=== PATIENT | female | born 1980 | race Caucasian/White ===

== ENCOUNTER 2017-12-29 09:24 | Inpatient (IN) | payer OTHER ==
[2017-12-29] MEDS ORDERED: PEPCID IV SCH (09:50)
[2017-12-29] MEDS ORDERED: REGLAN IV SCH (09:50)
[2017-12-29] MEDS ORDERED: BICITRA PO SCH (09:50)
[2017-12-29] MEDS ORDERED: PITOCin/NS 20 UNIT/1000ML DRIP 20 UNITS/1,000 ML BAG IV SCH ×2 (10:00→15:00)
[2017-12-29] MEDS ORDERED: GARAMYCIN/NS 120MG/100ML 120 MG/100 ML BAG IV SCH (10:00)
[2017-12-29] MEDS ORDERED: LACTATED RINGERS 1,000 ML IV SCH (10:00)
[2017-12-29] MEDS ORDERED: CLEOCIN 600 MG/50 mL 600 MG/50 ML BAG IV NR (10:00)
[2017-12-29] MEDS ORDERED: ANCEF/STERILE WATER 2 GM/20 ML 2 GM/20 ML SYRINGE IV NR (10:00)
[2017-12-29] MEDS: LACTATED RINGERS 1,000 ML IV SCH ×2 (10:30→19:51)
[2017-12-29] MEDS ORDERED: REGLAN ONE (10:36)
[2017-12-29] MEDS ORDERED: CLEOCIN 900 MG/50 mL 900 MG/50 ML BAG IV ONE (10:40)
--- NOTE | 2017-12-29 10:42 | History and Physical Report ---
History of Present Illness Date of examination: 12/29/17 Date of admission: 12/29/17 09:24 Chief complaint: 39 weeks gestation not in labor for elective repeat C/section. History of present illness: Patient is a 37 year old , LMP 03/21/17, EDC 01/03/18 at 39 weeks and 2 days who is admitted for elective repeat C/section. She denies any contractions , fluid leakage or bleeding. She reports good movement. Past History Past Medical History: other (anemia, Hep A) Past Surgical History: section Family/Genetic History: none Social history: no significant social history - Obstetrical History Expected Date of Delivery: 01/03/18 Actual Gestation: 39 Week(s) 2 Day(s) : 2 Para: 1 Hx # Term Pregnancies: 1 Number of Living Children: 1 #1 Infant Gender: Male year: Birthweight: 3.6 kg Method of Delivery: Gestational age at delivery: 40 Complications: transfusion, uterine atony Medications and Allergies Allergies Allergy/AdvReac Type Severity Reaction Status Date / Time Penicillins Allergy Rash Unverified 12/29/17 09:27 Sulfa (Sulfonamide Allergy Hives Unverified 12/29/17 09:27 Antibiotics) Active Meds: Active Medications Citric Acid/Sodium Citrate (Bicitra) 30 ml PO ONCE GINA Stop: 12/29/17 23:00 Famotidine (Pepcid) 20 mg IV ONCE ONE Stop: 12/29/17 09:51 Clindamycin HCl (Cleocin 600 Mg/50 Ml) 600 mg in 50 mls @ 100 mls/hr IV PREOP NR; Protocol Stop: 12/29/17 23:00 Gentamicin Sulfate/Sodium Chloride (Garamycin/Ns 120mg/100ml) 120 mg in 100 mls @ 194.175 mls/hr IV PREOP GINA; Protocol Stop: 12/29/17 23:00 Oxytocin/Sodium Chloride (Pitocin/Ns 20 Unit/1000ml Drip) 20 units in 1,000 mls @ 0 mls/hr IV TITR GINA Lactated Ringer's (Lactated Ringers) 1,000 mls @ 2,250 mls/hr IV PREOP GINA Stop: 12/30/17 10:27 Cefazolin Sodium (Ancef/Sterile Water 2 Gm/20 Ml) 2 gm in 20 mls @ 80 mls/hr IV PREOP NR; Protocol Stop: 12/29/17 23:00 Metoclopramide HCl (Reglan) 10 mg IV ONCE ONE Stop: 12/29/17 09:51 - Physical Exam Cardiovascular: Normal S1, Normal S2 Lungs: Positive: Clear to auscultation Vulva: both: normal Adnexa: both: normal Deep Tendon Reflex Grade: Normal +2 - Obstetrical FHR: category 1 Uterine Contraction Monitor Mode: External Cervical Dilatation: 0 Cervical Effacement Percentage: 50 station: -3 Uterine Contraction Pattern: Absent Results All other labs normal. Assessment and Plan - Patient Problems (1) 39 weeks gestation of Current Visit: Yes Status: Acute (2) Previous section Current Visit: Yes Status: Acute Plan to address problem: Admit to labor floor. Routine admitting labs. IV fluid. monitoring. Patient is for repeat C/section. Risks and benefits of the procedure were discussed in detail with the patient which included but not limited to the risks of infection, hemorrhage requiring blood transfusion, injury to the bowel , bladder and blood vessels. The patient expressed understanding, her questions were answered, she gave her informed consent. Anesthesia notified. Keep NPO. (3) Declines (vaginal after ) trial Current Visit: Yes Status: Acute
[2017-12-29 11:00] LABS: Basophils % (Auto) 0.4 % (0.0-1.8); Eosinophils # (Auto) 0.1 K/mm3 (0.0-0.4); Eosinophils % (Auto) 0.8 % (0.0-4.3); Hematocrit 39.3 % (30.3-42.9); Hemoglobin 13.1 gm/dl (10.1-14.3); Lymphocytes # (Auto) 2.2 K/mm3 (1.2-5.4); Lymphocytes % (Auto) 19.7 % (13.4-35.0); Mean Corpuscular HGB Conc 33 % (30-34); Mean Corpuscular Hemoglobin 31 pg (28-32); Mean Corpuscular Volume 91 fl (79-97); Monocytes # (Auto) 0.8 K/mm3 (0.0-0.8); Monocytes % (Auto) 6.9 % (0.0-7.3); Platelet Count 210 K/mm3 (140-440); Red Cell Distribution Width 13.4 % (13.2-15.2)
--- NOTE | 2017-12-29 11:14 | Anesthesia Consultation ---
Anesthesia Consult and Med Hx Date of service: 12/29/17 - Airway Anesthetic Teeth Evaluation: Good ROM Head & Neck: Adequate Mental/Hyoid Distance: Adequate - Pre-Operative Health Status ASA Pre-Surgery Classification: ASA2 Proposed Anesthetic Plan: General
[2017-12-29] MEDS ORDERED: MORPHINE ONE (11:27)
[2017-12-29] MEDS ORDERED: WATER FOR IRRIG STERILE IR ONE (12:17)
[2017-12-29] MEDS ORDERED: NACL 0.9% IR ONE (12:17)
[2017-12-29] MEDS ORDERED: XYLOCAINE MPF 2% ONE (12:44)
[2017-12-29] MEDS ORDERED: HEMABATE IM ONE ×2 (13:07→13:14)
[2017-12-29] MEDS ORDERED: HEMABATE IM NR (13:15)
[2017-12-29] MEDS ORDERED: LACTATED RINGERS 1,000 ML ONE (13:57)
[2017-12-29] MEDS ORDERED: NARCAN 0.4 MG/1 ML IV PRN (14:04)
[2017-12-29] MEDS ORDERED: TORADOL IV PRN (14:04)
[2017-12-29] MEDS ORDERED: SENOKOT PO PRN (14:04)
[2017-12-29] MEDS ORDERED: LANSINOH TP PRN (14:04)
[2017-12-29] MEDS ORDERED: ZOFRAN IV PRN (14:04)
[2017-12-29] MEDS ORDERED: MYLICON PO PRN (14:04)
[2017-12-29] MEDS ORDERED: TYLENOL PO PRN (14:04)
[2017-12-29] MEDS ORDERED: MILK OF MAGNESIA PO PRN (14:04)
[2017-12-29] MEDS ORDERED: MORPHINE IV PRN (14:04)
[2017-12-29] MEDS ORDERED: TUCKS PAD TP PRN (14:04)
--- NOTE | 2017-12-29 14:10 | Operative Report ---
Operative Report Operative Report: Preoperative diagnosis: 1. SIUP at 39 weeks and 2 days gestation not in labor. 2. Previous C/section. 3. Declined . Postoperative diagnosis: same as preoperative diagnosis. Procedure: Repeat low transverse C/section. Surgeon: Dr. Garcia Press Cutter: none Anesthesia: spinal IVF: RL 1.5 liters EBL: 1 liter Urine: 100 cc clear Complications: intraoperative uterine atony responsive to IV pitocin and myometrial hemabate. Procedure details: Risks, benefits, and alternatives of the procedure were discussed in detail with the patient was included but not limited to risk of infection, hemorrhage requiring blood incision, injury to the bowel or bladder and blood vessels. The patient expressed understanding, questions were answered, and she gave informed consent. The patient was taken to the operating room with an IV fluid and using Ringers lactate. In the operating room, she was placed in a sitting position and given spinal anesthesia. Then, she was placed in a dorsal supine position with a leftward tilt. Mistry catheter and Venodyne boots were placed. The abdomen was washed and she was prepared and draped in the usual sterile fashion. After confirming adequate spinal anesthesia, a Pfannenstiel skin incision was made in the lower abdomen at the level of the previous scar using the scalpel. This incision was carried down to the underlying fascia using the Bovie. The fascia was incised bilaterally in curvilinear fashion using the Bovie. 2 straight Kocker clamps were used to grasp the upper edge of the fascia from which the underlying rectus abdominis muscle was dissected off using the Bovie. A similar procedure was done with the lower edge of the fascia to dissect the underlying rectus abdominis muscle. The muscle was bluntly from the midline by pulling. The parietal peritoneum was grasped with 2 hemostat clamps and entered sharply using Metzenbaum scissors. A quick survey of the anatomy revealed a gravid uterus, normal fallopian tubes and ovaries bilaterally. A bladder flap was created. Marlon'O retractor was placed at the incision for proper visualization. A low transverse incision was made in the lower uterine segment using the scalpel and extended bilaterally in a curvilinear fashion using bandage scissors. The amniotic sac was ruptured and there was copious amount of clear amniotic fluid. The was found in an THA position. The head was delivered atraumatically followed by the delivery of the shoulders and rest of the body at 12:50 PM. The cord was clamped 2 and cut and the infant was handed off to the waiting early education teacher. The infant was a male, Apgars were 8 at 1 minute and 9 at 5 minutes, weight was 7 pounds and 13 ounces. Cord blood was collected. The placenta was delivered manually and it was completely three-vessel cord. The uterine incision was repaired in a running locked fashion using 0 Vicryl sutures. A second layer of imbrication was placed. There was some uterine atony which was responsive to IV Pitocin and myometrial Hemabate. The gutters were cleaned of clots and debris using dry lap sponges. After confirming adequate hemostasis, the instruments were removed from the abdominal cavity. The fascia was closed in a running fashion using 0 Vicryl sutures. The skin was closed in a subcutaneous fashion with 4-0 Vicryl on a Saji needle. Sterile dressing was placed. The counts of laps, needles, sponges and instruments were correct 2. The patient tolerated the procedure well. She was taken to the recovery room in a stable condition.
[2017-12-29] MEDS ORDERED: SODIUM CHLORIDE FLUSH SYRINGE 10 ML IV NR (15:00)
[2017-12-29] MEDS: TORADOL IV PRN ×2 (18:45→23:23)
[2017-12-29] MEDS ORDERED: BENADRYL PO PRN (19:32)
[2017-12-29 19:50] LABS: Hematocrit 32.6 % (30.3-42.9); Hemoglobin 10.5 gm/dl (10.1-14.3); Mean Corpuscular HGB Conc 32 % (30-34); Mean Corpuscular Hemoglobin 29 pg (28-32); Mean Corpuscular Volume 91 fl (79-97); Platelet Count 198 K/mm3 (140-440); Red Blood Count 3.57 M/mm3 (3.65-5.03); Red Cell Distribution Width 13.3 % (13.2-15.2)
[2017-12-30 02:06] LABS: Hematocrit 28.3 % (30.3-42.9); Hemoglobin 9.5 gm/dl (10.1-14.3)
[2017-12-30] MEDS: PERCOCET 5/325 PO PRN ×2 (06:51→12:05)
[2017-12-30] MEDS: MOTRIN PO PRN ×3 (09:18→21:20)
[2017-12-30] MEDS ORDERED: PRENATAL VITAMIN PO SCH (10:00)
[2017-12-30] MEDS ORDERED: FEOSOL PO SCH (10:00)
--- NOTE | 2017-12-30 10:00 | Progress Note ---
Assessment and Plan A: POD#1 s/p Repeat section Pain well controlled Stable P: Routine PP/PO care Encouraged ambulation in room Anticipate discharge home 24-48 hours Subjective - Subjective Date of service: 12/30/17 Principal diagnosis: s/p Repeat section Patient reports: appetite normal, voiding normally, pain well controlled, flatus , ambulating normally, no bowel movement [place]: doing well, bottle feeding Objective - Vital Signs Latest vital signs: Vital Signs Temp Pulse Resp BP BP Pulse Ox 12/30/17 09:18 20 12/30/17 08:42 98.5 F 101 H 16 104/53 12/30/17 04:18 98.5 F 105 H 18 115/70 95 12/29/17 23:55 99.0 F 102 H 16 111/63 96 12/29/17 20:06 99.0 F 107 H 16 122/77 97 12/29/17 15:30 98.3 F 88 131/69 12/29/17 15:06 84 18 111/56 98 12/29/17 15:01 97.9 F 12/29/17 15:00 83 18 111/56 98 12/29/17 14:55 84 22 104/64 98 12/29/17 14:50 80 14 108/61 96 12/29/17 14:45 78 16 103/64 98 12/29/17 14:40 77 15 105/60 97 12/29/17 14:35 78 15 103/59 99 12/29/17 14:30 79 17 103/65 98 12/29/17 14:25 89 20 109/73 99 12/29/17 14:20 82 17 115/63 98 12/29/17 14:15 89 16 104/69 99 12/29/17 14:10 92 H 12 110/71 99 12/29/17 14:05 93 H 10 L 113/54 99 12/29/17 14:04 97.9 F 12/29/17 14:03 99 12/29/17 11:30 132 H 100 Intake and Output 12/29/17 12/30/17 12/30/17 23:59 07:59 15:59 Intake Total 320 Output Total 750 Balance -430 Intake: Oral 320 Output: Urine 750 Indwelling Catheter 200 Void 550 Other: Total, Intake Amount 320 Total, Output Amount 750 # Bowel Movements 0 - Exam Breasts: Present: normal Cardiovascular: Present: Regular rate, Normal S1, Normal S2 Lungs: Present: Clear to auscultation, Normal air movement Abdomen: Present: normal appearance, soft, tenderness (as expected), normal bowel sounds. Absent: distention Vulva: both: normal Uterus: Present: firm, fundal height at umbilicus Extremities: Present: normal Deep Tendon Reflex Grade: Normal +2 Incision: Present: normal, dry, intact, dressed (pressure dressing, CDI, no drainage) - Labs Labs: Abnormal lab results 12/29/17 12/29/17 12/30/17 Range/Units 10:20 18:18 01:18 WBC 11.3 H 14.8 H (4.5-11.0) K/mm3 RBC 3.57 L (3.65-5.03) M/mm3 Hgb 9.5 L (10.1-14.3) gm/dl Hct 28.3 L (30.3-42.9) % Seg Neutrophils % 72.2 H (40.0-70.0) % Seg Neutrophils # 8.2 H (1.8-7.7) K/mm3
[2017-12-31] MEDS: PERCOCET 5/325 PO PRN ×2 (03:25→14:35)
[2017-12-31] MEDS: MOTRIN PO PRN ×2 (06:02→14:35)
--- NOTE | 2017-12-31 10:50 | Progress Note ---
Assessment and Plan A: POD #2 Asymptomatic Anemia P: Follow Routine PostOp Orders Continue FESO4 D/c home today per patient request RTO in One Week Subjective - Subjective Date of service: 12/31/17 Principal diagnosis: s/p Repeat section Patient reports: appetite normal, voiding normally, pain well controlled, flatus , bowel movement, ambulating normally [place]: doing well, bottle feeding (and bottlefeeding) Objective - Vital Signs Latest vital signs: Vital Signs Temp Pulse Resp BP Pulse Ox 12/31/17 03:22 98.0 F 101 H 20 120/75 96 12/30/17 15:00 20 12/30/17 12:05 20 Intake and Output 12/30/17 12/31/17 12/31/17 22:59 06:59 14:59 Intake Total 360 Balance 360 Intake: Intake, Free Water 360 Other: # Voids Void 2 - Exam Breasts: Present: normal Cardiovascular: Present: Regular rate Lungs: Present: Clear to auscultation, Normal air movement Abdomen: Present: normal appearance, soft, normal bowel sounds Uterus: Present: normal, firm, fundal height below umbilicus Extremities: Present: normal Incision: Present: normal, dry, intact
--- NOTE | 2017-12-31 10:52 | Discharge Summary ---
Providers - Providers Date of Admission: 12/29/17 09:24 Date of discharge: 12/31/17 Attending physician: KRISTOPHER CHESTER MD Primary care physician: KRISTOPHER CHESTER MD Hospitalization Reason for admission: section Delivery: Procedure: repeat low transverse Episiotomy: none Laceration: none Incision: normal, dry, intact complications: none Discharge diagnosis: IUP at term delivered [place] baby: male Condition at discharge: Good Disposition: DC-01 TO HOME OR SELFCARE Plan - Discharge Medications Prescriptions: Ibuprofen [Motrin] 800 mg PO Q8HR PRN #20 tablet PRN Reason: Pain, Moderate (4-6) Ibuprofen [Motrin] 800 mg PO Q8HR PRN #20 tablet PRN Reason: Pain, Moderate (4-6) Ibuprofen [Motrin] 800 mg PO Q8HR PRN #20 tablet PRN Reason: Pain, Moderate (4-6) oxyCODONE /ACETAMINOPHEN [Percocet 5/325] 1 tab PO Q4HR #14 tab oxyCODONE /ACETAMINOPHEN [Percocet 5/325] 1 tab PO Q4HR #14 tab oxyCODONE /ACETAMINOPHEN [Percocet 5/325] 1 tab PO Q4HR #14 tab - Provider Discharge Summary Activity: routine, no sex for 6 weeks, no heavy lifting 4 weeks, no strenuous exercise Diet: routine Instructions: routine Additional instructions: [] Smoking cessation referral if applicable(refer to patient education folder for contact #) [] Refer to [facility]'s [facility] Booklet Call your doctor immediately for: * Fever > 100.5 * Heavy vaginal bleeding ( >1 pad per hour) * Severe persistent headache * Shortness of breath * Reddened, hot, painful area to leg or breast * Drainage or odor from incision. * Keep incision clean and dry at all times and follow doctor's instructions regarding bathing/showering - Follow up plan Follow up: KRISTOPHER CHESTER MD [Primary Care Provider] - 7 Days
[2017-12-31 10:57] VITALS: BP 95/48
== END 2017-12-31 15:30 | disposition home or self-care (01) | DRG 766 ==
LOC: APU 09:24 → OB 16:05
PROVIDERS: ADMIT Obstetrics & Gynecology; ATTEND Obstetrics & Gynecology
PROC: 10D00Z1 Extraction of Products of Conception, Low, Open Approach (ICD-10-PCS; principal; 2017-12-29)
DX: O34.211 Maternal care for low transverse scar from previous cesarean delivery (principal); O62.2 Other uterine inertia; Z37.0 Single live birth; Z3A.39 39 weeks gestation of pregnancy; O90.81 Anemia of the puerperium; D64.9 Anemia, unspecified
CPT/HCPCS: 36415; 59025; 85014; 85018; 85025; 85027; 86850; 86900; 86901; 96360; 96361; 96365; 96374; 99211; A6250; G0463; J1580; J1885; J2270; J2590; J2765; J7120